=== PATIENT | male | born 1985 | race Caucasian/White ===

== ENCOUNTER 2023-11-21 19:42 | Emergency (ER) | payer OTHER ==
[~2023-11-21] VITALS: Ht 157.5 cm; Wt 61.0 kg
[2023-11-21 19:48] VITALS: TEMP 98.4; O2SAT 98
[2023-11-21] MEDS ORDERED: NAPR-681 PO (21:47)
[2023-11-21] MEDS: HYDROCODONE/ACETAMINOPHEN 5/325MG TABLET PO STA (22:02)
[2023-11-21 23:40] VITALS: BP 124/88; PULSE 73; RESP 16
== END 2023-11-22 00:01 | disposition home or self-care (01) ==
LOC: ER 19:42
DX: S01.21XA Laceration without foreign body of nose, initial encounter (principal); Y08.89XA Assault by other specified means, initial encounter; Y93.89 Activity, other specified; Y92.89 Other specified places as the place of occurrence of the external cause; Y99.8 Other external cause status
CPT/HCPCS: 70486; 99284